=== PATIENT | male | born 1950 | race African-American/Black ===

== ENCOUNTER 2018-04-26 22:15 | Emergency (ER) | payer MEDICARE, OTHER ==
[~2018-04-26] VITALS: Ht 180.3 cm; Wt 100.0 kg
[2018-04-26] MEDS ORDERED: OMEP20 PO (22:21)
[2018-04-26] MEDS ORDERED: PARO20TA24 PO (22:21)
[2018-04-26] MEDS ORDERED: ATEN50TA PO (22:21)
[2018-04-26 22:58] LABS: BASOPHILS % (AUTO) 0.2 % (0.0-2.0); EOSINOPHILS % (AUTO) 0 % (1.0-6.0); HEMATOCRIT 38.5 % (41-53); LYMPHOCYTES # (AUTO) 0.2 K/uL (1.0-4.8); MEAN CORPUSCULAR HEMOGLOBIN 30.2 pg (26.0-34.0); MEAN CORPUSCULAR HGB CONC 33.8 G/dL (31.0-37.0); MEAN CORPUSCULAR VOLUME 89 fL (80-100); MONOCYTES # (AUTO) 0.3 K/uL (0.1-1.0); MONOCYTES % (AUTO) 1.5 % (2.0-9.0); PLATELET COUNT (AUTO) 263 K/uL (150-450); RED BLOOD CELL COUNT(AUTO) 4.31 MIL/uL (4.50-5.90); RED CELL DISTRIBUTION WIDTH 15.2 % (11.5-14.5)
[2018-04-26 23:01] LABS: NEUTROPHILS % (AUTO) 97.3 % (40.0-70.0)
[2018-04-26 23:02] LABS: BILIRUBIN,URINE NEGATIVE (NEGATIVE); GLUCOSE, URINE (UA) 100 mg/dL (NEGATIVE); KETONES,URINE TRACE mg/dL (NEGATIVE); LEUKOCYTE ESTERASE ,URINE NEGATIVE (NEGATIVE); NITRATE,URINE NEGATIVE (NEGATIVE); OCCULT BLOOD,URINE LARGE (NEGATIVE); PROTEIN,URINE SEE CONFIRM (NEGATIVE)
[2018-04-26 23:04] LABS: APPEARANCE,URINE HAZY (CLEAR)
[2018-04-26 23:07] LABS: AMPHET/METH SCREEN,URINE POSITIVE (NEGATIVE); BARBITURATE SCREEN, URINE NEGATIVE (NEGATIVE); BENZODIAZEPINES SCREEN,URINE NEGATIVE (NEGATIVE); CANNABINOID SCREEN,URINE POSITIVE (NEGATIVE); COCAINE SCREEN,URINE POSITIVE (NEGATIVE); METHADONE SCREEN, URINE NEGATIVE (NEGATIVE); OPIATE SCREEN,URINE NEGATIVE (NEGATIVE); PHENCYCLIDINE SCREEN,URINE NEGATIVE (NEGATIVE)
[2018-04-26 23:10] LABS: SULFOSALICYLIC ACID,URINE 4+ (Negative)
[2018-04-26 23:11] LABS: WBC,URINE 0-2 /HPF (0-5)
[2018-04-26 23:12] LABS: ANION GAP 9 mmol/L (8-16); CALCIUM, TOTAL 9.6 mg/dL (8.8-10.5); CARBON DIOXIDE 32 mmol/L (22-29); CHLORIDE 97 mmol/L (98-107); CREATININE 1.22 mg/dL (0.60-1.30); GLOMERULAR FILTR. RATE CALC > 60 mL/min (>60); GLUCOSE,RANDOM 181 mg/dL (70-110); POTASSIUM 3.7 mmol/L (3.5-5.1); SODIUM SERUM 138 mmol/L (136-145); UREA NITROGEN, BLOOD 19 mg/dL (7-18)
[2018-04-26 23:12] LABS: BACTERIA,URINE Few /HPF (None Seen); SQUAMOUS EPITHELIAL CELL,UR Rare /LPF (None Seen)
[2018-04-26 23:22] LABS: PLATELET MORPHOLOGY COMMENT GIANT PLTS PRESENT
[2018-04-26 23:28] LABS: ALANINE AMINOTRANSFERASE 32 U/L (12-78); ALBUMIN 2.8 g/dL (3.4-5.0); ALKALINE PHOSPHATASE 139 U/L (46-116); ASPARTATE AMINOTRANSFERASE 28 U/L (15-37); BILIRUBIN,TOTAL 0.7 mg/dL (0.1-1.0); LIPASE 51 U/L (73-393); TOTAL PROTEIN, SERUM 7.6 g/dL (6.4-8.2)
[2018-04-26 23:29] LABS: B-TYPE NATRIURETIC PEPTIDE 67 pg/mL (0-100)
[2018-04-27] MEDS ORDERED: IOVERSOL 350 MG/ML 150 ML VIAL ONE (00:47)
[2018-04-27] MEDS ORDERED: SODIUM CHLORIDE 0.9% 100 ML ONE (00:47)
[2018-04-27 01:52] VITALS: BP 188/100
[2018-04-27] MEDS ORDERED: MORPHINE SULFATE 4 MG/ML SYRINGE IVP ONE (02:00)
[2018-04-27] MEDS ORDERED: ONDANSETRON HCL 4 MG/2 ML VIAL IVP ONE (02:00)
== END 2018-04-27 03:03 | disposition left against medical advice (07) ==
LOC: EMS 22:15
DX: J18.9 Pneumonia, unspecified organism (principal); I10 Essential (primary) hypertension; F19.10 Other psychoactive substance abuse, uncomplicated; K21.9 Gastro-esophageal reflux disease without esophagitis; F17.210 Nicotine dependence, cigarettes, uncomplicated
CPT/HCPCS: 36415; 71045; 74177; 80053; 80307; 81001; 83690; 83880; 84484; 85025; 93005; 96374; 96375; 99285; J2270; J2405; J7050; Q9967

== ENCOUNTER 2022-07-25 18:11 | Emergency (ER) | payer SELFPAY ==
[~2022-07-25] VITALS: Ht 180.3 cm; Wt 97.0 kg
[~2022-07-25 18:11] MED LIST: ATEN-72 PO; OMEP20 PO; PARO-38 PO
[2022-07-25] MEDS ORDERED: LIDOCAINE 5% TRANSDERMAL PATCH TD ONE (21:15)
[2022-07-25] MEDS ORDERED: IBUPROFEN 600 MG TABLET PO ONE (21:15)
[2022-07-25] MEDS ORDERED: BACLOFEN 10 MG TABLET PO ONE (21:15)
[2022-07-25 22:35] LABS: APPEARANCE,URINE CLEAR (CLEAR); BILIRUBIN,URINE NEGATIVE (NEGATIVE); GLUCOSE, URINE (UA) NEGATIVE (NEGATIVE); KETONES,URINE NEGATIVE (NEGATIVE); LEUKOCYTE ESTERASE ,URINE NEGATIVE (NEGATIVE); NITRATE,URINE NEGATIVE (NEGATIVE); OCCULT BLOOD,URINE NEGATIVE (NEGATIVE); PH,URINE 5.5 (5.0-8.0); PROTEIN,URINE 30-70 mg/dL (NEGATIVE); SPECIFIC GRAVITIY, URINE 1.039 (1.003-1.030); UROBILINOGEN,URINE <=1.0 mg/dL (<=1.0)
[2022-07-25 22:42] LABS: BACTERIA,URINE None Seen /HPF (None Seen); RBC,URINE 0-2 /HPF (0-2); WBC,URINE 0-2 /HPF (0-5)
[2022-07-25] MEDS ORDERED: BACL10TA PO (22:46)
[2022-07-25] MEDS ORDERED: IBUP-2070 PO (22:46)
[2022-07-25 23:18] VITALS: BP 140/82
== END 2022-07-25 23:19 | disposition home or self-care (01) ==
LOC: EMS 18:11
DX: M54.50 Low back pain, unspecified (principal); F32.9 Major depressive disorder, single episode, unspecified; F41.9 Anxiety disorder, unspecified; F10.20 Alcohol dependence, uncomplicated; F17.210 Nicotine dependence, cigarettes, uncomplicated; I10 Essential (primary) hypertension; I25.10 Atherosclerotic heart disease of native coronary artery without angina pectoris; K21.9 Gastro-esophageal reflux disease without esophagitis
CPT/HCPCS: 72131; 81001; 99284

== ENCOUNTER 2025-08-10 01:02 | Emergency (ER) | payer SELFPAY ==
[~2025-08-10] VITALS: Ht 180.3 cm; Wt 81.8 kg
[~2025-08-10 01:02] MED LIST changes: +BACL10TA PO; +IBUP-1492 PO; +OMEP-148 PO; -OMEP20 PO
[2025-08-10 04:33] LABS: PLATELET COUNT (AUTO) 257 K/uL (150-450); RED BLOOD CELL COUNT(AUTO) 3.71 MIL/uL (4.50-5.90); RED CELL DISTRIBUTION WIDTH 16.0 % (11.5-14.5); WHITE BLOOD COUNT (AUTO) 6.9 K/uL (4.5-11.0)
[2025-08-10 04:42] LABS: CALCIUM, TOTAL 8.3 mg/dL (8.8-10.5); CREATININE 1.23 mg/dL (0.60-1.30); GLOMERULAR FILTR. RATE CALC > 60 mL/min (>60); GLUCOSE,RANDOM 91 mg/dL (70-110); SODIUM SERUM 139 mmol/L (136-145); UREA NITROGEN, BLOOD 20 mg/dL (7-18)
[2025-08-10 06:19] VITALS: BP 124/67; PULSE 78; RESP 16; TEMP 97.3; O2SAT 96
== END 2025-08-10 06:30 | disposition home or self-care (01) ==
LOC: EMS 01:02
DX: R53.1 Weakness (principal); I10 Essential (primary) hypertension; F17.210 Nicotine dependence, cigarettes, uncomplicated; Z79.899 Other long term (current) drug therapy
CPT/HCPCS: 80048; 85025; 99283